=== PATIENT | female | born 1995 | race Caucasian/White ===

== ENCOUNTER 2017-04-20 10:51 | Outpatient (CLI) | payer MEDICAID ==
[~2017-04-20] VITALS: Ht 175.3 cm; Wt 113.1 kg
[2017-04-20 10:59] VITALS: BP 101/57
== END 2017-04-20 13:20 | disposition home or self-care (01) ==
LOC: LDOP 10:51
PROVIDERS: ATTEND Obstetrics & Gynecology
DX: O26.893 Other specified pregnancy related conditions, third trimester (principal); O62.9 Abnormality of forces of labor, unspecified; O99.513 Diseases of the respiratory system complicating pregnancy, third trimester; O60.03 Preterm labor without delivery, third trimester; J45.909 Unspecified asthma, uncomplicated; R10.9 Unspecified abdominal pain; Z3A.35 35 weeks gestation of pregnancy
CPT/HCPCS: 59025; 99201; G0463

== ENCOUNTER 2017-05-01 00:09 | Inpatient (IN) | payer MEDICAID ==
[~2017-05-01] VITALS: Ht 175.3 cm; Wt 113.0 kg
[2017-05-01] MEDS ORDERED: LACTATED RINGERS 1,000 ML IVBOLUS ONE (02:30)
[2017-05-01] MEDS ORDERED: D5%-LACTATED RINGERS 1,000 ML IV SCH (03:15)
[2017-05-01] MEDS ORDERED: OXYTOCIN 30U/ 0.9% NaCL 500ML 500 ML IV ONE (03:15)
[2017-05-01] MEDS ORDERED: LACTATED RINGERS 1,000 ML IV SCH (03:15)
[2017-05-01] MEDS ORDERED: OXYTOCIN 30U/ 0.9% NaCL 500ML 500 ML ONE ×2 (03:20→12:44)
[2017-05-01] MEDS ORDERED: NEWBORN KIT ONE (03:20)
[2017-05-01] MEDS ORDERED: TERBUTALINE 1 MG/ML, 1ML IVPush PRN (03:30)
[2017-05-01] MEDS ORDERED: FENTANYL PF 100 MCG/2ML IVPush PRN (03:30)
[2017-05-01] MEDS ORDERED: ONDANSETRON 2MG/ML, 2ML IVPush PRN (03:30)
[2017-05-01] MEDS ORDERED: CALCIUM CARBONATE 500 MG TAB.CHEW PO PRN (03:30)
[2017-05-01] MEDS ORDERED: FENTANYL PF 100 MCG/2ML IV PRN (03:30)
[2017-05-01 03:44] LABS: BASOPHILS # (AUTO) 0.05 x10^3/uL (0-0.1); BASOPHILS % (AUTO) 0 % (0-1); EOSINOPHILS # (AUTO) 0.11 x10^3/uL (0-0.4); EOSINOPHILS % (AUTO) 1 % (1-7); LYMPHOCYTES # (AUTO) 3.32 x10^3/uL (1-3.4); LYMPHOCYTES % (AUTO) 26 % (22-44); MD NO; MEAN CORPUSCULAR HEMOGLOBIN 26.1 pg (27.0-34.8); MEAN CORPUSCULAR HGB CONC 32.3 g/dL (32.4-35.8); MEAN CORPUSCULAR VOLUME 80.8 fL (80-100); MONOCYTES # (AUTO) 0.53 x10^3/uL (0.2-0.8); MONOCYTES % (AUTO) 4 % (2-9); NEUTROPHILS # (AUTO) 8.74 x10^3/uL (1.8-6.8); NEUTROPHILS % (AUTO) 69 % (42-75); PLATELET COUNT 177 x10^3/uL (130-400); RED BLOOD COUNT 4.06 x10^6/uL (3.82-5.3); RED CELL DISTRIBUTION WIDTH 13.9 % (9.6-15.2)
[2017-05-01] MEDS ORDERED: BUPIVACAINE 0.25% ONE (03:52)
[2017-05-01] MEDS ORDERED: FENTANYL/BUPIV./NS/PF 250 ML EPIDCONT ONE ×2 (03:52→03:55)
[2017-05-01] MEDS ORDERED: FENTANYL PF 100 MCG/2ML ONE (03:52)
[2017-05-01] MEDS: LACTATED RINGERS 1,000 ML IV SCH ×3 (04:12→20:12)
[2017-05-01] MEDS ORDERED: FENTANYL/BUPIV./NS/PF 250 ML EPIDCONT SCH (04:12)
[2017-05-01] MEDS ORDERED: LACTATED RINGERS 1,000 ML IVBOLUS PRN (04:30)
[2017-05-01 06:59] VITALS: BP 96/59
[2017-05-01] MEDS ORDERED: MISOPROSTOL 200 MCG TABLET ONE (11:38)
[2017-05-01] MEDS ORDERED: OXYcodone/APAP 5/325MG TABLET PO PRN (13:30)
[2017-05-01] MEDS ORDERED: MISOPROSTOL 200 MCG TABLET PR PRN (13:30)
[2017-05-01] MEDS: OXYTOCIN 30U/ 0.9% NaCL 500ML 500 ML IV SCH ×2 (13:57→23:08)
[2017-05-01] MEDS ORDERED: IBUPROFEN 600 MG TABLET ONE (15:23)
[2017-05-01] MEDS: IBUPROFEN 600 MG TABLET PO PRN ×2 (15:24→23:08)
[2017-05-01 16:25] VITALS: BP 112/70
[2017-05-01 19:30] VITALS: BP 103/63
[2017-05-01 21:46] LABS: BASOPHILS # (AUTO) 0.09 x10^3/uL (0-0.1); BASOPHILS % (AUTO) 1 % (0-1); EOSINOPHILS # (AUTO) 0.06 x10^3/uL (0-0.4); EOSINOPHILS % (AUTO) 0 % (1-7); LYMPHOCYTES # (AUTO) 2.48 x10^3/uL (1-3.4); LYMPHOCYTES % (AUTO) 16 % (22-44); MD NO; MEAN CORPUSCULAR HEMOGLOBIN 26.2 pg (27.0-34.8); MEAN CORPUSCULAR HGB CONC 32.7 g/dL (32.4-35.8); MEAN CORPUSCULAR VOLUME 80.3 fL (80-100); MEAN PLATELET VOLUME 11.4 fL (7.4-10.4); MONOCYTES # (AUTO) 0.42 x10^3/uL (0.2-0.8); MONOCYTES % (AUTO) 3 % (2-9); NEUTROPHILS # (AUTO) 12.21 x10^3/uL (1.8-6.8); NEUTROPHILS % (AUTO) 80 % (42-75); PLATELET COUNT 171 x10^3/uL (130-400); RED BLOOD COUNT 3.87 x10^6/uL (3.82-5.3); RED CELL DISTRIBUTION WIDTH 13.7 % (9.6-15.2)
[2017-05-01 23:50] VITALS: BP 106/74
[2017-05-01] MEDS: OXYcodone/APAP 5/325MG TABLET PO PRN (23:50)
[2017-05-02 04:10] VITALS: BP 104/65
[2017-05-02] MEDS: LACTATED RINGERS 1,000 ML IV SCH (04:12)
[2017-05-02] MEDS: OXYcodone/APAP 5/325MG TABLET PO PRN ×2 (05:31→09:36)
[2017-05-02] MEDS: IBUPROFEN 600 MG TABLET PO PRN ×2 (05:31→12:36)
[2017-05-02 08:40] VITALS: BP 103/68
[2017-05-02] MEDS ORDERED: PRENATAL VIT/IRON/FA 1 EACH TABLET PO SCH (09:00)
[2017-05-02] MEDS: OXYTOCIN 30U/ 0.9% NaCL 500ML 500 ML IV SCH (09:08)
[2017-05-02] MEDS ORDERED: OXYC-302 PO (11:34)
[2017-05-02] MEDS ORDERED: IBUP-1222 PO (11:35)
== END 2017-05-02 13:58 | disposition home or self-care (01) | DRG 775 ==
LOC: LDOP 00:09 → LDIP 03:20 → 2NW 15:58
PROVIDERS: ADMIT Obstetrics & Gynecology; ATTEND Obstetrics & Gynecology
PROC: 3E0R3BZ Introduction of Anesthetic Agent into Spinal Canal, Percutaneous Approach (ICD-10-PCS; principal; 2017-05-01)
PROC: 10E0XZZ Delivery of Products of Conception, External Approach (ICD-10-PCS; 2017-05-01)
PROC: 00HU33Z Insertion of Infusion Device into Spinal Canal, Percutaneous Approach (ICD-10-PCS; 2017-05-01)
DX: O80 Encounter for full-term uncomplicated delivery (principal); Z37.0 Single live birth; Z3A.37 37 weeks gestation of pregnancy
CPT/HCPCS: 36415; 85025; 86850; 86900; J2590; J3010; J7120; J7121